=== PATIENT | male | born 1985 | race African-American/Black ===

== ENCOUNTER 2021-01-30 11:20 | Emergency (ER) | payer OTHER, SELFPAY ==
[2021-01-30 11:20] VITALS: BP 130/81; PULSE 86; RESP 20; TEMP 36.7; O2SAT 96; BMI 28.5
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
[2021-01-30 11:50] VITALS: BMI 28.5
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
[2021-01-30 12:40] VITALS: BP 134/83; PULSE 85; RESP 20; TEMP 36.7; O2SAT 97
== END 2021-01-30 12:40 | disposition home or self-care (01) ==
PROVIDERS: Emergency Provider Emergency Medicine; PCP Family Medicine
DX: S60.222A Contusion of left hand, initial encounter (principal); V49.3XXA Car occupant (driver) (passenger) injured in unspecified nontraffic accident, initial encounter
CPT/HCPCS: 73130; 99282

== ENCOUNTER → 2021-02-03 15:17 | Outpatient (CLI) | payer OTHER, SELFPAY ==
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
== END ==
PROVIDERS: PCP Nurse Practitioner Family; Visit Provider Nurse Practitioner Family
DX: M25.512 Pain in left shoulder (principal); M79.642 Pain in left hand; V89.2XXD Person injured in unspecified motor-vehicle accident, traffic, subsequent encounter
CPT/HCPCS: 73030; 73130

== ENCOUNTER 2021-02-28 15:00 | Outpatient (RCR) | payer OTHER, SELFPAY ==
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
== END 2021-02-28 15:05 | disposition home or self-care (01) ==
LOC: PT 15:00
PROVIDERS: Visit Provider Nurse Practitioner Family
DX: M25.472 Effusion, left ankle (principal); M79.642 Pain in left hand; V89.2XXD Person injured in unspecified motor-vehicle accident, traffic, subsequent encounter
CPT/HCPCS: 97010; 97014; 97018; 97110; 97140; 97163; 97760; G0283

== ENCOUNTER → 2021-03-19 12:48 | Outpatient (CLI) | payer OTHER, SELFPAY ==
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
== END ==
LOC: RAD 12:48
PROVIDERS: PCP Family Medicine; Visit Provider Nurse Practitioner Family
DX: M25.512 Pain in left shoulder (principal); M25.612 Stiffness of left shoulder, not elsewhere classified; M25.532 Pain in left wrist; M25.432 Effusion, left wrist; V89.2XXD Person injured in unspecified motor-vehicle accident, traffic, subsequent encounter
CPT/HCPCS: 73221

== ENCOUNTER 2022-08-02 14:36 | Emergency (ER) | payer SELFPAY ==
[2022-08-02 15:33] VITALS: BP 140/83; PULSE 106; RESP 18; TEMP 37.2; O2SAT 100; BMI 34.9
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
[2022-08-02 16:20] VITALS: BP 140/83; PULSE 106; RESP 18; TEMP 37.2
== END 2022-08-02 16:20 | disposition home or self-care (01) ==
PROVIDERS: Emergency Provider Nurse Practitioner Family; PCP Nurse Practitioner Family
DX: R11.2 Nausea with vomiting, unspecified (principal); R19.7 Diarrhea, unspecified; M79.652 Pain in left thigh
CPT/HCPCS: 99204; 99212; G0463

== ENCOUNTER → 2022-08-31 15:04 | Outpatient (CLI) | payer MEDICARE, SELFPAY ==
--- NOTE | 2022-08-31 15:11 | XR_ITS ---
FINAL REPORT CLINICAL HISTORY: LT THIGH PAIN FINDINGS: LEFT FEMUR AP and lateral views were obtained. There is no acute fracture or dislocation. The joint spaces appear normal. No soft tissue abnormality is identified. IMPRESSION: No acute bony abnormality of the left femur. Reviewed, Interpreted and Dictated by Alma Bennett MD Transcribed by Yaneth Long Authenticated and [facility]
== END ==
LOC: RAD 15:05
PROVIDERS: PCP Nurse Practitioner Family; Visit Provider Nurse Practitioner Family
DX: M79.652 Pain in left thigh (principal)
CPT/HCPCS: 73552

== ENCOUNTER 2023-04-13 14:07 | Outpatient (CLI) | payer SELFPAY ==
[2023-04-13 14:54] LABS: Chloride 99 mmol/L (98-107); Potassium 4.2 mmoL/L (3.5-5.1); Sodium 135 mmol/L (136-145)
[2023-04-13 14:56] LABS: Aspartate Amino Transferase 20 U/L (17-59); Blood Urea Nitrogen 9 mg/dl (9-20); Estimated Glomerular Filt Rate 151 ml/min (>60); GFR (African American) 182 ML/MIN (>60)
[2023-04-13 14:57] LABS: Albumin Level 4.3 g/dl (3.5-5.0); Albumin/Globulin Ratio 1.5 (1.1-1.8); Alkaline Phosphatase 87 U/L (38-126); Anion Gap 14.2 mEq/L (5-15); Bilirubin,Total 0.5 mg/dl (0.2-1.3); Calcium 9.3 mg/dl (8.4-10.2); Carbon Dioxide 26 mmol/L (22.0-30.0); Chol/HDL Ratio 7.3 (1-3.5); Cholesterol 248 mg/dl (140-200); Globulin 2.8 g/dL (1.3-3.2); HDL Cholesterol 34 mg/dl (40-60); Hemoglobin A1C 13.2 % (4.0-6.0); Total Protein,Serum 7.1 g/dl (6.3-8.2); Triglycerides 174 mg/dl (30-150); VLDL Cholesterol 35 mg/dL (0-40)
[2023-04-13 15:12] LABS: Direct LDL Cholesterol 149.41 mg/dL (100-129)
[2023-04-13 15:14] LABS: Glucose 478 mg/dl (74-100)
[2023-04-13 16:50] LABS: Alanine Aminotransferase 28 U/L (12-78)
== END 2023-04-13 23:59 ==
LOC: LAB 14:08
PROVIDERS: PCP Nurse Practitioner Family; Visit Provider Nurse Practitioner Family
DX: E11.9 Type 2 diabetes mellitus without complications (principal); E78.5 Hyperlipidemia, unspecified; Z79.4 Long term (current) use of insulin
CPT/HCPCS: 36415; 80053; 80061; 83036

== ENCOUNTER 2023-10-13 16:49 | Outpatient (CLI) | payer SELFPAY ==
[2023-10-13 17:46] LABS: Alanine Aminotransferase 24 U/L (12-78); Albumin Level 4.2 g/dl (3.5-5.0); Albumin/Globulin Ratio 1.4 (1.1-1.8); Alkaline Phosphatase 61 U/L (38-126); Anion Gap 11.3 mEq/L (5-15); Aspartate Amino Transferase 24 U/L (17-59); Bilirubin,Total 0.6 mg/dl (0.2-1.3); Blood Urea Nitrogen 9 mg/dl (9-20); Calcium 9.7 mg/dl (8.4-10.2); Carbon Dioxide 29 mmol/L (22.0-30.0); Chloride 103 mmol/L (98-107); Chol/HDL Ratio 4.5 (1-3.5); Cholesterol 209 mg/dl (140-200); Estimated Glomerular Filt Rate 150 ml/min (>60); GFR (African American) 181 ML/MIN (>60); Globulin 2.9 g/dL (1.3-3.2); Glucose 150 mg/dl (74-100); HDL Cholesterol 46 mg/dl (40-60); Potassium 4.3 mmoL/L (3.5-5.1); Sodium 139 mmol/L (136-145); Total Protein,Serum 7.1 g/dl (6.3-8.2); Triglycerides 112 mg/dl (30-150); VLDL Cholesterol 22 mg/dL (0-40)
[2023-10-13 17:57] LABS: Direct LDL Cholesterol 126.93 mg/dL (100-129)
[2023-10-13 18:12] LABS: Hemoglobin A1C 9.8 % (4.0-6.0)
== END 2023-10-13 23:59 | disposition home or self-care (01) ==
LOC: LAB.DROPOF 16:49
PROVIDERS: PCP Nurse Practitioner Family; Visit Provider Nurse Practitioner Family
DX: E11.9 Type 2 diabetes mellitus without complications (principal); E78.5 Hyperlipidemia, unspecified
CPT/HCPCS: 80053; 80061; 82043; 83036

== ENCOUNTER 2024-04-21 16:41 | Outpatient (CLI) | payer SELFPAY ==
[2024-04-21 18:04] LABS: Creatinine,Urine Random 145 mg/dL (Not Estab.)
[2024-04-21 18:08] LABS: Microalbumin/Creatinine Ratio 4.4
[2024-04-21 18:16] LABS: Chol/HDL Ratio 4.9 (1-3.5); Cholesterol 195 mg/dl (140-200); HDL Cholesterol 40 mg/dl (40-60); Triglycerides 128 mg/dl (30-150); VLDL Cholesterol 26 mg/dL (0-40)
[2024-04-21 18:27] LABS: Direct LDL Cholesterol 128.94 mg/dL (100-129)
[2024-04-21 18:48] LABS: Thyroid Stimulating Hormone 1.94 uIU/mL (0.465-4.68)
[2024-04-21 18:50] LABS: Hemoglobin A1C 12.6 % (4.0-6.0)
[2024-04-21 19:07] LABS: Vitamin B12 486 pg/mL (239-931)
[2024-04-21 20:23] LABS: Ferritin 55.7 ng/ml (17.9-464)
== END 2024-04-21 23:59 | disposition home or self-care (01) ==
LOC: LAB 16:41
PROVIDERS: PCP Nurse Practitioner Family; Visit Provider Nurse Practitioner Family
DX: E78.5 Hyperlipidemia, unspecified (principal); E11.9 Type 2 diabetes mellitus without complications; R20.0 Anesthesia of skin; R20.2 Paresthesia of skin; Z79.4 Long term (current) use of insulin
CPT/HCPCS: 36415; 80061; 82043; 82570; 82607; 82728; 83036; 84443

== ENCOUNTER 2024-05-10 16:36 | Outpatient (CLI) | payer SELFPAY ==
--- NOTE | 2024-05-10 16:57 | XR_ITS ---
PROCEDURE INFORMATION: Exam: XR Right Foot Exam date and time: 05/10/2024 4:58 PM Age: 38 years old Clinical indication: Pain; Foot; Right; Additional info: Right foot pain TECHNIQUE: Imaging protocol: Radiologic exam of the right foot. Views: 3 or more views. COMPARISON: CR XR FOOT RT MIN 3V 05/10/2024 4:58 PM FINDINGS: Bones/joints: No acute fracture or malalignment. Mild calcaneal enthesopathy. Soft tissues: Unremarkable. IMPRESSION: 1. No acute osseous findings. 2. Mild calcaneal enthesopathy.
--- NOTE | 2024-05-10 16:57 | XR_ITS ---
PROCEDURE INFORMATION: Exam: XR Left Foot Exam date and time: 05/10/2024 4:58 PM Age: 38 years old Clinical indication: Pain; Foot; Left; Additional info: Left foot pain TECHNIQUE: Imaging protocol: Radiologic exam of the left foot. Views: 3 or more views. COMPARISON: No relevant prior studies available. FINDINGS: Bones/joints: No acute fracture or malalignment. Mild calcaneal enthesopathy. Soft tissues: Unremarkable. IMPRESSION: 1. No acute osseous findings. 2. Mild calcaneal enthesopathy.
[2024-05-10 17:17] LABS: Basophils # 0.1 K/mm3 (0-0.2); Basophils % 0.8 % (0.1-2.0); Eosinophils # 0.1 K/mm3 (0.0-0.4); Eosinophils % 0.8 % (0.1-12.0); Hematocrit 42.8 % (42.0-52.0); Hemoglobin 14.1 g/dL (14.1-18.0); Lymphocytes # 4.6 K/mm3 (0.7-4.5); Lymphocytes % 52.1 % (10-50); Mean Corpuscular HGB Conc 32.9 g/dL (31.8-35.4); Mean Corpuscular Hemoglobin 25.9 pg (27.0-31.2); Mean Corpuscular Volume 78.7 fl (80-94); Mean Platelet Volume 10.2 fl (7.4-10.4); Monocytes # 0.5 K/mm3 (0.1-1.0); Monocytes % 5.6 % (1.7-9.3); Neutrophils # 3.5 K/mm3 (1.8-7.8); Neutrophils % 40.5 % (37.0-80.0); Platelet Count 328 K/mm3 (142-424); Red Blood Count 5.44 M/mm3 (4.60-6.20); White Blood Count 8.8 K/mm3 (4.8-10.8)
[2024-05-10 17:19] LABS: MANUAL DIFFERENTIAL MANUAL DIFFERENTIAL (MANUAL DIFF)
[2024-05-10 17:37] LABS: Eosinophils % 1 % (0-3); Lymphocytes % 54 % (10-50); Monocytes % 6 % (2-9); Neutrophils % 39 % (42-76); Total Cells Counted 100
[2024-05-10 17:39] LABS: Platelet Estimate Normal; RBC Morphology Normal
[2024-05-10 17:56] LABS: Uric Acid 4.8 mg/dl (3.5-8.5)
== END 2024-05-10 23:59 | disposition home or self-care (01) ==
LOC: LAB 16:36
PROVIDERS: PCP Nurse Practitioner Family; Visit Provider Nurse Practitioner Family
DX: M79.671 Pain in right foot (principal); M79.672 Pain in left foot
CPT/HCPCS: 36415; 73630; 84550; 85007; 85025; 85027

== ENCOUNTER 2025-02-13 14:50 | Outpatient (CLI) | payer OTHER, SELFPAY ==
[2025-02-13 18:01] LABS: Alanine Aminotransferase 24 U/L (12-78); Albumin Level 5.0 g/dl (3.5-5.0); Albumin/Globulin Ratio 1.6 (1.1-1.8); Alkaline Phosphatase 92 U/L (38-126); Anion Gap 11.6 mEq/L (5-15); Aspartate Amino Transferase 21 U/L (17-59); Bilirubin,Total 0.5 mg/dl (0.2-1.3); Blood Urea Nitrogen 10 mg/dl (9-20); Calcium 10.3 mg/dl (8.4-10.2); Carbon Dioxide 28 mmol/L (22.0-30.0); Chloride 97 mmol/L (98-107); Cholesterol 250 mg/dl (140-200); Creatinine,Serum 0.70 mg/dl (0.66-1.25); Estimated Glomerular Filt Rate 125 ml/min (>60); GFR (African American) 151 ML/MIN (>60); Globulin 3.2 g/dL (1.3-3.2); Glucose 220 mg/dl (74-100); HDL Cholesterol 45 mg/dl (40-60); Magnesium 2.1 mg/dl (1.6-2.3); Potassium 4.6 mmoL/L (3.5-5.1); Sodium 132 mmol/L (136-145); Total Protein,Serum 8.2 g/dl (6.3-8.2); Triglycerides 158 mg/dl (30-150)
[2025-02-13 18:31] LABS: Thyroid Stimulating Hormone 1.16 uIU/mL (0.465-4.68)
== END 2025-02-13 23:59 | disposition home or self-care (01) ==
LOC: LAB.DROPOF 02-14 12:15
PROVIDERS: PCP Nurse Practitioner Family; Visit Provider Nurse Practitioner Family
DX: E78.5 Hyperlipidemia, unspecified (principal); Z79.4 Long term (current) use of insulin; R20.0 Anesthesia of skin; R20.2 Paresthesia of skin
CPT/HCPCS: 80053; 80061; 82043; 82570; 83735; 84443